=== PATIENT | female | born 2000 | race Two or more races ===

== ENCOUNTER 2023-07-02 16:02 | Outpatient (CLI) | payer MEDICAID | END 2023-07-02 23:59 | disposition home or self-care (01) | LOC: RAD 16:02 | PROVIDERS: ATTEND Nurse Practitioner Obstetrics & Gynecology | DX: O09.92 Supervision of high risk pregnancy, unspecified, second trimester (principal); Z3A.20 20 weeks gestation of pregnancy | CPT/HCPCS: 76811 ==